=== PATIENT | female | born 1970 | race Asian ===

== ENCOUNTER 2025-04-15 10:02 | Emergency (ER) | payer BC ==
[~2025-04-15] VITALS: Ht 157.5 cm; Wt 55.5 kg
[2025-04-15 10:03] VITALS: TEMP 97.3
[2025-04-15] MEDS ORDERED: PROPOFOL 1% ISO-OSM 1000 MG/100 ML BOTTLE IV ONE (10:06)
[2025-04-15] MEDS ORDERED: FentaNYL CITRATE PF 100 MCG/2 ML VIAL IM ONE (10:06)
[2025-04-15] MEDS ORDERED: MIDAZOLAM HCL 2 MG/2 ML VIAL IVP ONE (10:06)
[2025-04-15] MEDS ORDERED: 0.9% SODIUM CHLORIDE 10 ML VIAL IRRIG ONE (10:06)
[2025-04-15] MEDS ORDERED: ONDANSETRON HCL 4 MG/2 ML VIAL IVP ONE (10:06)
[2025-04-15] MEDS ORDERED: PHENYLEPHRINE HCL IN 0.9% NACL 400 MCG/10 ML SYRINGE IVP ONE (10:06)
[2025-04-15] MEDS ORDERED: SULF-261 PO (10:10)
[2025-04-15] MEDS ORDERED: [UNRECOGNIZED DRUG - OTHER] PO (10:10)
[2025-04-15 10:55] LABS: PLATELET COUNT (AUTO) 184 K/uL (150-450); RED BLOOD CELL COUNT(AUTO) 4.18 MIL/uL (4.00-5.20); RED CELL DISTRIBUTION WIDTH 12.7 % (11.5-14.5); WHITE BLOOD COUNT (AUTO) 5.3 K/uL (4.5-11.0)
[2025-04-15] MEDS ORDERED: FentaNYL CITRATE PF 100 MCG/2 ML VIAL IVP PRN (11:00)
[2025-04-15] MEDS ORDERED: VANCOMYCIN 1.25 GM/WATER(PEG) 250 ML IV ONE (11:00)
[2025-04-15] MEDS ORDERED: MEPERIDINE-PF 25 MG/ML VIAL IVP PRN (11:00)
[2025-04-15 11:02] LABS: CALCIUM, TOTAL 8.1 mg/dL (8.8-10.5); CREATININE 1.11 mg/dL (0.60-1.30); GLOMERULAR FILTR. RATE CALC 51.0 mL/min (>60); GLUCOSE,RANDOM 76.0 mg/dL (70-110); SODIUM SERUM 139.0 mmol/L (136-145); UREA NITROGEN, BLOOD 13.0 mg/dL (7-18)
[2025-04-15] MEDS ORDERED: BUPIVACAINE LIPOSOME/PF 1.3%-13.3MG/ML SUSP 10 ML VIAL INJ ONE ×2 (11:15→11:30)
[2025-04-15] MEDS: MUPIROCIN CALCIUM 2% 22 GM OINTMENT ONE (11:30)
[2025-04-15] MEDS: BUPIVACAINE/EPI/PF 0.5% 30 ML VIAL ONE (11:30)
[2025-04-15] MEDS: LIDOCAINE/PF 2% 5 ML VIAL ONE (11:30)
[2025-04-15] MEDS ORDERED: CEPH-558 PO (12:41)
[2025-04-15 12:42] VITALS: BP 96/70; PULSE 71; RESP 16; O2SAT 100
[2025-04-15] MEDS ORDERED: OXYGEN THERAPY IH SCH (20:00)
== END 2025-04-15 12:58 | disposition home or self-care (01) ==
LOC: EMS 10:05
DX: L02.212 Cutaneous abscess of back [any part, except buttock and flank] (principal); E03.9 Hypothyroidism, unspecified; Z98.890 Other specified postprocedural states; Z79.899 Other long term (current) drug therapy
CPT/HCPCS: 10060; 80048; 87205; 85025; 36415; 87081; 99284; 93005; 87070; Z7610; J3490 ×3; J0690; J3010; J2250; J2405; J2704